=== PATIENT | male | born 1975 | race Two or more races ===

== ENCOUNTER 2021-10-24 19:12 | Emergency (ER) | payer OTHER ==
[~2021-10-24] VITALS: Ht 160 cm; Wt 83.9 kg
[2021-10-24] MEDS ORDERED: METFORMIN HCL1000 M2 PO (19:46)
[2021-10-24] MEDS ORDERED: PEPCID AC20 MG PO (22:56)
[2021-10-24] MEDS ORDERED: LEVSIN/SL0.125 MG SL (22:56)
== END 2021-10-24 23:38 | disposition home or self-care (01) ==
LOC: ER 19:12
DX: K52.89 Other specified noninfective gastroenteritis and colitis (principal)

== ENCOUNTER 2022-01-23 19:22 | Emergency (ER) | payer OTHER ==
[~2022-01-23] VITALS: Ht 160 cm; Wt 83.0 kg
[~2022-01-23 19:22] MED LIST: LEVSIN/SL0.125 MG SL; METFORMIN HCL1000 M2 PO; PEPCID AC20 MG PO
[2022-01-23] MEDS ORDERED: METFORMIN HCL1000 M3 PO (19:43)
== END 2022-01-24 00:23 | disposition home or self-care (01) ==
LOC: ER 19:22
DX: G51.0 Bell's palsy (principal)